=== PATIENT | female | born 1955 | race American Indian/Alaskan Native ===

== ENCOUNTER 2023-06-09 08:11 | Inpatient (IN) | payer MEDICAID ==
[~2023-06-09] VITALS: Ht 154.9 cm; Wt 58.1 kg
[2023-06-09] MEDS ORDERED: acetaminophen 325mg tablet PO STA (09:12)
[2023-06-09] MEDS ORDERED: CefTRIAXone 2gm/D5W 50ml BAG 50 ML IV ONE (09:15)
[2023-06-09 09:47] LABS: ABG BASE EXCESS 5.4 mmol/L (-2.0-2.0); ABG HCO3 32.5 mmol/L (22.0-26.0); ABG OXYGEN SATURATION 97.7 % (94-97); ABG PCO2 (T) 60.4 mmHg (32.0-45.0); ABG PH (T) 7.347 (7.350-7.450); ABG PO2 (T) 101.3 mmHg (75.0-100.0); ALLEN'S TEST POSITIVE; FCOHb 0.3 % (0.0-3.9); FHHb 2.3 % (0.0-5.0); FMetHb 0.3 % (0.0-1.5); FO2Hb 97.1 % (94-97); MODE MASK - SIMPLE; PATIENT TEMPERATURE 36.4; TOTAL HEMOGLOBIN 10.5 G/dl (12.0-16.0)
[2023-06-09 10:01] VITALS: PULSE 65; RESP 25; O2SAT 97
[2023-06-09 10:12] VITALS: PULSE 65; RESP 22; O2SAT 97
[2023-06-09 10:37] LABS: BASOPHILS % (AUTO) 0.1 % (0-1); EOSINOPHILS % (AUTO) 0 % (0-6); HEMATOCRIT 31.2 % (35.0-45.0); LYMPHOCYTES # (AUTO) 0.8 X10'3 (1.1-4.8); LYMPHOCYTES % (AUTO) 6.5 % (21-51); MEAN CORPUSCULAR HEMOGLOBIN 29.5 PG (27.0-31.0); MEAN CORPUSCULAR HGB CONC 31.9 g/dL (33.0-36.5); MEAN CORPUSCULAR VOLUME 92.4 FL (78-98); MEAN PLATELET VOLUME 7.5 FL (7.4-10.4); MONOCYTES # (AUTO) 0.6 X10'3 (0-0.9); MONOCYTES % (AUTO) 5.1 % (2-12); NEUTROPHILS # (AUTO) 10.6 X10'3 (1.8-7.7); NEUTROPHILS % (AUTO) 88.3 % (42-75); PLATELET COUNT 299 X10'3 (140-440); RED BLOOD COUNT 3.38 X10'6 (4.20-5.60); RED CELL DISTRIBUTION WIDTH 13.6 % (11.5-14.5)
[2023-06-09 10:54] LABS: APTT 26 SECONDS (22-32); INR 1.1 INR; PROTHROMBIN TIME 11.3 SECONDS (9.0-12.0)
[2023-06-09 10:58] LABS: ALANINE AMINOTRANSFERASE 25 U/L (12-78); ALBUMIN 2.5 G/DL (3.4-5.0); ALBUMIN/GLOBULIN RATIO 0.4 (1.1-1.5); ALKALINE PHOSPHATASE 85 IU/L (46-116); ANION GAP 0 (8-16); ASPARTATE AMINO TRANSFERASE 20 U/L (10-37); BILIRUBIN,TOTAL 0.3 MG/DL (0.1-1.0); BLOOD UREA NITROGEN 21 MG/DL (7-18); CALCIUM 9.7 MG/DL (8.5-10.1); CHLORIDE 105 MMOL/L (99-107); CREATININE 0.42 MG/DL (0.40-0.90); GLUCOSE 142 MG/DL (70-104); POTASSIUM 4.8 MMOL/L (3.5-5.1); SODIUM 144 MMOL/L (135-145); TOTAL CARBON DIOXIDE 38.6 MMOL/L (24-32); TOTAL PROTEIN 8.1 G/DL (6.4-8.2); eCRCL 101 ML/MIN; eGFR > 90 ML/MIN
[2023-06-09 10:59] LABS: MAGNESIUM 2.1 MG/DL (1.5-2.4); PRO BRAIN NATRIURETIC PEPTIDE 3927 PG/ML (0-125)
[2023-06-09 11:03] LABS: D-DIMER 1.45 MG/L FEU (0-0.50)
[2023-06-09] MEDS ORDERED: iohexol 350MG/ML 100ml bottle IV ONE (11:12)
[2023-06-09 16:12] LABS: BILIRUBIN,URINE NEGATIVE (Neg); CLARITY,URINE SLIGHTLY CLOUDY (Clear); COLOR,URINE YELLOW (Yellow); GLUCOSE, URINE NEGATIVE (Neg); KETONES,URINE NEGATIVE (Neg); LEUKOCYTE ESTERASE ,URINE NEGATIVE (Neg); NITRITES, URINE NEGATIVE (Neg); OCCULT BLOOD,URINE TRACE-INTACT (Neg); PH,URINE 6.5 (4.8-8.0); PROTEIN,URINE NEGATIVE (Neg); UROBILINOGEN,URINE 0.2 E.U/dL (0.2-1.0)
[2023-06-09 16:13] LABS: UA COLLECTION TYPE FOLEY CATH
[2023-06-09 16:23] LABS: BACTERIA,URINE FEW /HPF (Neg); CAL OXALATE CRYSTALS 3+ /HPF (NEGATIVE); HYALINE CASTS 0-3 /LPF (NEGATIVE); MUCUS STRANDS NONE SEEN /LPF (Neg); RBC,URINE 0-2 /HPF (0-2); RENAL CELLS, URINE FEW /HPF; SQUAMOUS EPITHELIAL CELL,UR NONE SEEN /LPF (FEW); YEAST MODERATE /HPF (NEGATIVE)
[2023-06-09 19:32] VITALS: PULSE 57; RESP 18; O2SAT 100
[2023-06-09 19:34] VITALS: PULSE 58; RESP 18; O2SAT 98
[2023-06-09 23:07] LABS: ABG BASE EXCESS 11.5 mmol/L (-2.0-2.0); ABG HCO3 37.5 mmol/L (22.0-26.0); ABG OXYGEN SATURATION 97.8 % (94-97); ABG PCO2 (T) 57.3 mmHg (32.0-45.0); ABG PH (T) 7.432 (7.350-7.450); ABG PO2 (T) 101.5 mmHg (75.0-100.0); ALLEN'S TEST Modified; FCOHb 0.3 % (0.0-3.9); FHHb 2.2 % (0.0-5.0); FLOW 2 L/min; FMetHb 0.4 % (0.0-1.5); FO2Hb 97.1 % (94-97); MODE NASAL CANNULA; PATIENT TEMPERATURE 36.9
[2023-06-09 23:10] VITALS: PULSE 58; RESP 25; O2SAT 98
[2023-06-10] VITALS (15 sets, daily range): BP systolic 80–121; BP diastolic 40–53; PULSE 59–79; RESP 16–29; TEMP 96.9–97.8; O2SAT 98–100
[2023-06-10] MEDS ORDERED: ondansetron 4mg rapidly disintigrating tab PO PRN (00:55)
[2023-06-10] MEDS ORDERED: magnesium hydroxide 30ml (MOM) UD suspension PO PRN (00:55)
[2023-06-10] MEDS ORDERED: normal saline 1000ml 1,000 ML IV SCH (00:55)
[2023-06-10] MEDS ORDERED: HYDROcodone/acetaminophen 5mg/325mg tablet PO PRN (00:55)
[2023-06-10] MEDS ORDERED: bisacodyl 10mg suppository rectal RC PRN (00:55)
[2023-06-10] MEDS ORDERED: acetaminophen 325mg tablet PO PRN ×2 (00:55)
[2023-06-10] MEDS ORDERED: HYDROcodone/acetaminophen 10/325mg tab PO PRN (00:55)
[2023-06-10] MEDS ORDERED: ondansetron/PF 4mg/2ml inj IV PRN (00:55)
[2023-06-10] MEDS ORDERED: mag hydrox/Alum hydrox/simeth 30ml oral suspension PO PRN (00:55)
[2023-06-10] MEDS ORDERED: morphine 2 MG/ML inj. syringe IV PRN ×2 (00:55)
[2023-06-10] MEDS ORDERED: acetaminophen 650mg rectal suppository RC PRN (00:55)
[2023-06-10 02:29] LABS: HEMOGLOBIN A1C 5.3 % (4.5-6.2)
[2023-06-10 02:32] LABS: APTT 24 SECONDS (22-32); INR 1.1 INR; PROTHROMBIN TIME 11.7 SECONDS (9.0-12.0)
[2023-06-10 03:09] LABS: THYROID STIMULATING HORMONE < 0.01 ulU/ml (0.34-4.50)
[2023-06-10] MEDS ORDERED: albumin (human) 25% 100ml IV 100 ML in dextrose 5% water 500ml 400 ML IV ONE (06:20)
[2023-06-10] MEDS ORDERED: albumin (Human) 5% 250ml 250 ML IV ONE ×4 (06:25→07:30)
[2023-06-10 06:47] LABS: ABG BASE EXCESS 10.1 mmol/L (-2.0-2.0); ABG HCO3 35.6 mmol/L (22.0-26.0); ABG OXYGEN SATURATION 87.1 % (94-97); ABG PCO2 (T) 53.1 mmHg (32.0-45.0); ABG PH (T) 7.441 (7.350-7.450); ALLEN'S TEST POSITIVE; FCOHb 0.3 % (0.0-3.9); FHHb 12.8 % (0.0-5.0); FMetHb 0.5 % (0.0-1.5); FO2Hb 86.4 % (94-97); MODE MASK - BIPAP; PATIENT TEMPERATURE 36.3; PEEP 5 cm H2O; RESPIRATORY RATE 12 b/min; TIDAL VOLUME 444 mL; TOTAL HEMOGLOBIN 8.7 G/dl (12.0-16.0)
[2023-06-10] MEDS: pantoprazole 40mg Tablet.DR PO SCH (07:30)
[2023-06-10] MEDS: docusate sod 100mg capsule PO SCH ×2 (08:00→19:08)
[2023-06-10] MEDS ORDERED: methylPREDNISolone sod succ 125mg/2ml vial IV SCH (08:00)
[2023-06-10] MEDS: CefTRIAXone/D5W-Rocephin 1gm 50 ML IV SCH (09:03)
[2023-06-10] MEDS: azithromycin/NS 500mg/250ml 250 ML IV SCH (09:04)
[2023-06-10] MEDS: heparin, porcine 5000 units/ml vial SQ SCH ×2 (09:04→19:53)
[2023-06-10] MEDS ORDERED: ipratropium/albuterol 3ml nebule NEB PRN (11:05)
[2023-06-10] MEDS: ipratropium/albuterol 3ml nebule NEB PRN (11:20)
[2023-06-10] MEDS: methylPREDNISolone sod succ/PF 40mg inj. IV SCH (19:52)
[2023-06-10] MEDS ORDERED: temazepam 15mg capsule PO PRN (21:00)
[2023-06-10] MEDS ORDERED: ringers solution, lactated 500ml IV solution IV ONE (23:05)
[2023-06-10] MEDS ORDERED: DOPamine 400mg/D5W 250ml 250 ML IV SCH (23:05)
[2023-06-10] MEDS ORDERED: albumin (human) 25% 100ml IV 100 ML IV ONE (23:05)
[2023-06-10 23:27] LABS: BASOPHILS # (AUTO) 0.1 X10'3 (0-0.2); BASOPHILS % (AUTO) 0.9 % (0-1); EOSINOPHILS % (AUTO) 0 % (0-6); HEMATOCRIT 27.3 % (35.0-45.0); LYMPHOCYTES # (AUTO) 0.5 X10'3 (1.1-4.8); LYMPHOCYTES % (AUTO) 5.3 % (21-51); MEAN CORPUSCULAR HEMOGLOBIN 30.7 PG (27.0-31.0); MEAN CORPUSCULAR HGB CONC 33.1 g/dL (33.0-36.5); MEAN CORPUSCULAR VOLUME 92.7 FL (78-98); MEAN PLATELET VOLUME 7.4 FL (7.4-10.4); MONOCYTES # (AUTO) 0.3 X10'3 (0-0.9); NEUTROPHILS # (AUTO) 8.8 X10'3 (1.8-7.7); NEUTROPHILS % (AUTO) 90.8 % (42-75); PLATELET COUNT 277 X10'3 (140-440); RED BLOOD COUNT 2.94 X10'6 (4.20-5.60); RED CELL DISTRIBUTION WIDTH 13.7 % (11.5-14.5); WHITE BLOOD COUNT 9.7 X10'3 (4.5-11.0)
[2023-06-10 23:42] LABS: ALANINE AMINOTRANSFERASE 19 U/L (12-78); ALBUMIN 2.7 G/DL (3.4-5.0); ALBUMIN/GLOBULIN RATIO 0.6 (1.1-1.5); ALKALINE PHOSPHATASE 66 IU/L (46-116); ANION GAP 4 (8-16); ASPARTATE AMINO TRANSFERASE 27 U/L (10-37); BILIRUBIN,TOTAL 0.2 MG/DL (0.1-1.0); BLOOD UREA NITROGEN 27 MG/DL (7-18); BUN/CREATININE RATIO 71.1 (10.0-20.0); CALCIUM 9.7 MG/DL (8.5-10.1); CHLORIDE 108 MMOL/L (99-107); CREATININE 0.38 MG/DL (0.40-0.90); GLUCOSE 128 MG/DL (70-104); POTASSIUM 4.2 MMOL/L (3.5-5.1); SODIUM 150 MMOL/L (135-145); TOTAL CARBON DIOXIDE 37.8 MMOL/L (24-32); eCRCL 111 ML/MIN; eGFR > 90 ML/MIN
[2023-06-10 23:50] LABS: FREE T4 (FREE THYROXINE) 1.24 NG/DL (0.73-1.40); PRO BRAIN NATRIURETIC PEPTIDE 2951 PG/ML (0-125)
[2023-06-11] VITALS (29 sets, daily range): BP systolic 110–158; BP diastolic 52–86; PULSE 59–102; RESP 14–22; TEMP 96.8–98.2; O2SAT 95–99
[2023-06-11] LABS: BILIRUBIN,URINE NEGATIVE (Neg); CLARITY,URINE SLIGHTLY CLOUDY (Clear); COLOR,URINE YELLOW (Yellow); GLUCOSE, URINE NEGATIVE (Neg); KETONES,URINE NEGATIVE (Neg); LEUKOCYTE ESTERASE ,URINE SMALL (Neg); NITRITES, URINE NEGATIVE (Neg); OCCULT BLOOD,URINE SMALL (Neg); PROTEIN,URINE NEGATIVE (Neg); UROBILINOGEN,URINE 0.2 E.U/dL (0.2-1.0)
[2023-06-11 00:02] LABS: UA COLLECTION TYPE FOLEY CATH
[2023-06-11 00:03] LABS: ABG BASE EXCESS 10.3 mmol/L (-2.0-2.0); ABG HCO3 37.3 mmol/L (22.0-26.0); ABG OXYGEN SATURATION 96.2 % (94-97); ABG PCO2 (T) 64.9 mmHg (32.0-45.0); ABG PH (T) 7.376 (7.350-7.450); ABG PO2 (T) 82.4 mmHg (75.0-100.0); ALLEN'S TEST Modified; FCOHb 0.3 % (0.0-3.9); FHHb 3.8 % (0.0-5.0); FMetHb 0.3 % (0.0-1.5); FO2Hb 95.6 % (94-97); MODE MASK - BIPAP; PATIENT TEMPERATURE 36.6; RESPIRATORY RATE 14 b/min; TOTAL HEMOGLOBIN 9.5 G/dl (12.0-16.0)
[2023-06-11 00:08] LABS: BACTERIA,URINE FEW /HPF (Neg); WBC,URINE TNTC /HPF (0-4)
[2023-06-11 00:09] LABS: SQUAMOUS EPITHELIAL CELL,UR FEW /LPF (FEW)
[2023-06-11 00:10] LABS: YEAST MODERATE /HPF (NEGATIVE)
[2023-06-11 00:11] LABS: MUCUS STRANDS MODERATE /LPF (Neg)
[2023-06-11 00:14] LABS: HYALINE CASTS 0-3 /LPF (NEGATIVE)
[2023-06-11] MEDS ORDERED: albumin (Human) 5% 250ml 250 ML IV ONE ×2 (01:00)
[2023-06-11] MEDS: dextrose 5%-water 1,000 ML IV SCH ×2 (02:12→20:18)
[2023-06-11] MEDS ORDERED: DOPamine 400mg/D5W 250ml 250 ML IV SCH ×2 (03:35→03:40)
[2023-06-11 07:02] LABS: BASOPHILS % (AUTO) 0.1 % (0-1); EOSINOPHILS % (AUTO) 0 % (0-6); HEMATOCRIT 27.5 % (35.0-45.0); HEMOGLOBIN 9.1 g/dl (12.0-16.0); LYMPHOCYTES # (AUTO) 0.6 X10'3 (1.1-4.8); LYMPHOCYTES % (AUTO) 5.6 % (21-51); MEAN CORPUSCULAR HEMOGLOBIN 30.4 PG (27.0-31.0); MEAN CORPUSCULAR VOLUME 92.1 FL (78-98); MEAN PLATELET VOLUME 7.5 FL (7.4-10.4); MONOCYTES # (AUTO) 0.8 X10'3 (0-0.9); MONOCYTES % (AUTO) 7.2 % (2-12); NEUTROPHILS # (AUTO) 9.9 X10'3 (1.8-7.7); NEUTROPHILS % (AUTO) 87.1 % (42-75); PLATELET COUNT 290 X10'3 (140-440); RED BLOOD COUNT 2.99 X10'6 (4.20-5.60); RED CELL DISTRIBUTION WIDTH 13.7 % (11.5-14.5); WHITE BLOOD COUNT 11.3 X10'3 (4.5-11.0)
[2023-06-11 07:24] LABS: ALANINE AMINOTRANSFERASE 22 U/L (12-78); ALBUMIN 3.1 G/DL (3.4-5.0); ALBUMIN/GLOBULIN RATIO 0.8 (1.1-1.5); ALKALINE PHOSPHATASE 65 IU/L (46-116); ANION GAP 5 (8-16); ASPARTATE AMINO TRANSFERASE 26 U/L (10-37); BILIRUBIN,TOTAL 0.4 MG/DL (0.1-1.0); BLOOD UREA NITROGEN 22 MG/DL (7-18); BUN/CREATININE RATIO 59.5 (10.0-20.0); CALCIUM 9.3 MG/DL (8.5-10.1); CHLORIDE 108 MMOL/L (99-107); CHOL/HDL RATIO 2.3 (0.00-4.99); CHOLESTEROL 77 MG/DL (0-200); CREATININE 0.37 MG/DL (0.40-0.90); GLUCOSE 178 MG/DL (70-104); HDL CHOLESTEROL 34 MG/DL (35-60); LDL CHOLESTEROL 30 MG/DL (50-100); POTASSIUM 3.6 MMOL/L (3.5-5.1); SODIUM 149 MMOL/L (135-145); TOTAL CARBON DIOXIDE 36.4 MMOL/L (24-32); TOTAL PROTEIN 7.1 G/DL (6.4-8.2); TRIGLYCERIDES 97 MG/DL (20-135); eCRCL 114 ML/MIN; eGFR > 90 ML/MIN
[2023-06-11] MEDS: pantoprazole 40mg Tablet.DR PO SCH (07:30)
[2023-06-11] MEDS: docusate sod 100mg capsule PO SCH ×2 (08:00→20:00)
[2023-06-11] MEDS: methylPREDNISolone sod succ/PF 40mg inj. IV SCH ×2 (09:14→20:16)
[2023-06-11] MEDS: CefTRIAXone/D5W-Rocephin 1gm 50 ML IV SCH (09:15)
[2023-06-11] MEDS: azithromycin/NS 500mg/250ml 250 ML IV SCH (10:20)
[2023-06-11] MEDS: heparin, porcine 5000 units/ml vial SQ SCH ×2 (10:30→20:17)
[2023-06-11] MEDS: ipratropium/albuterol 3ml nebule NEB PRN (11:50)
[2023-06-12] VITALS (9 sets, daily range): BP systolic 120–133; BP diastolic 56–64; PULSE 59–74; RESP 13–22; TEMP 97.5–99.1; O2SAT 96–99
[2023-06-12 07:30] LABS: BASOPHILS % (AUTO) 0.1 % (0-1); EOSINOPHILS % (AUTO) 0.1 % (0-6); HEMATOCRIT 25.7 % (35.0-45.0); HEMOGLOBIN 8.6 g/dl (12.0-16.0); LYMPHOCYTES # (AUTO) 1.3 X10'3 (1.1-4.8); LYMPHOCYTES % (AUTO) 12.9 % (21-51); MEAN CORPUSCULAR HEMOGLOBIN 30.5 PG (27.0-31.0); MEAN CORPUSCULAR HGB CONC 33.5 g/dL (33.0-36.5); MEAN PLATELET VOLUME 7.3 FL (7.4-10.4); MONOCYTES % (AUTO) 9.9 % (2-12); NEUTROPHILS # (AUTO) 7.7 X10'3 (1.8-7.7); PLATELET COUNT 279 X10'3 (140-440); RED BLOOD COUNT 2.83 X10'6 (4.20-5.60); RED CELL DISTRIBUTION WIDTH 13.4 % (11.5-14.5)
[2023-06-12] MEDS: pantoprazole 40mg Tablet.DR PO SCH (07:30)
[2023-06-12] MEDS: docusate sod 100mg capsule PO SCH ×2 (08:00→20:00)
[2023-06-12 08:26] LABS: ALANINE AMINOTRANSFERASE 20 U/L (12-78); ALBUMIN 2.7 G/DL (3.4-5.0); ALBUMIN/GLOBULIN RATIO 0.8 (1.1-1.5); ALKALINE PHOSPHATASE 57 IU/L (46-116); ANION GAP 5 (8-16); ASPARTATE AMINO TRANSFERASE 23 U/L (10-37); BILIRUBIN,TOTAL 0.3 MG/DL (0.1-1.0); BLOOD UREA NITROGEN 21 MG/DL (7-18); BUN/CREATININE RATIO 56.8 (10.0-20.0); CALCIUM 9.1 MG/DL (8.5-10.1); CHLORIDE 106 MMOL/L (99-107); CREATININE 0.37 MG/DL (0.40-0.90); GLUCOSE 105 MG/DL (70-104); POTASSIUM 3.1 MMOL/L (3.5-5.1); SODIUM 147 MMOL/L (135-145); TOTAL CARBON DIOXIDE 35.7 MMOL/L (24-32); TOTAL PROTEIN 6.3 G/DL (6.4-8.2); eCRCL 114 ML/MIN; eGFR > 90 ML/MIN
[2023-06-12 08:34] LABS: % IRON SATURATION 31 % (11-46); IRON 39 UG/DL (49-151); TOTAL IRON BINDING CAPACITY 125 UG/DL (259-388)
[2023-06-12] MEDS: azithromycin/NS 500mg/250ml 250 ML IV SCH (08:36)
[2023-06-12] MEDS: CefTRIAXone/D5W-Rocephin 1gm 50 ML IV SCH (08:36)
[2023-06-12 08:37] LABS: FERRITIN 380 NG/ML (8-252)
[2023-06-12] MEDS: methylPREDNISolone sod succ/PF 40mg inj. IV SCH ×2 (08:40→20:33)
[2023-06-12] MEDS: heparin, porcine 5000 units/ml vial SQ SCH ×2 (08:42→20:33)
[2023-06-12] MEDS ORDERED: magnesium 4gm in 100ml NS 100 ML IV PRN (15:05)
[2023-06-12] MEDS ORDERED: magnesium 2GM in 50ml NS 50 ML IV PRN (15:05)
[2023-06-12] MEDS ORDERED: potassium Cl 40MEQ/1/2NS 520ml 520 ML IV PRN (15:05)
[2023-06-12] MEDS ORDERED: magnesium Cl slow-release 64mg tablet PO PRN (15:05)
[2023-06-12] MEDS ORDERED: potassium Cl 20 mEq SR tablet PO PRN ×2 (15:05)
[2023-06-12] MEDS: dextrose 5%-water 1,000 ML IV SCH (16:30)
[2023-06-12] MEDS: K and/or MAG REPLACEMENT MC SCH (20:34)
[2023-06-13] VITALS (14 sets, daily range): BP systolic 108–141; BP diastolic 57–65; PULSE 63–93; RESP 12–28; TEMP 98–100.8; O2SAT 90–96
[2023-06-13 07:14] LABS: BASOPHILS % (AUTO) 0.1 % (0-1); EOSINOPHILS % (AUTO) 0 % (0-6); HEMATOCRIT 26.6 % (35.0-45.0); HEMOGLOBIN 8.8 g/dl (12.0-16.0); LYMPHOCYTES # (AUTO) 1.3 X10'3 (1.1-4.8); MEAN CORPUSCULAR HEMOGLOBIN 30.2 PG (27.0-31.0); MEAN CORPUSCULAR HGB CONC 33.2 g/dL (33.0-36.5); MEAN PLATELET VOLUME 7.2 FL (7.4-10.4); MONOCYTES # (AUTO) 0.9 X10'3 (0-0.9); MONOCYTES % (AUTO) 8.5 % (2-12); NEUTROPHILS # (AUTO) 8.1 X10'3 (1.8-7.7); NEUTROPHILS % (AUTO) 78.4 % (42-75); PLATELET COUNT 284 X10'3 (140-440); RED BLOOD COUNT 2.92 X10'6 (4.20-5.60); RED CELL DISTRIBUTION WIDTH 13.6 % (11.5-14.5); WHITE BLOOD COUNT 10.3 X10'3 (4.5-11.0)
[2023-06-13] MEDS: pantoprazole 40mg Tablet.DR PO SCH (07:30)
[2023-06-13 07:38] LABS: ALANINE AMINOTRANSFERASE 22 U/L (12-78); ALBUMIN 2.7 G/DL (3.4-5.0); ALBUMIN/GLOBULIN RATIO 0.7 (1.1-1.5); ALKALINE PHOSPHATASE 58 IU/L (46-116); ANION GAP 5 (8-16); ASPARTATE AMINO TRANSFERASE 21 U/L (10-37); BILIRUBIN,TOTAL 0.4 MG/DL (0.1-1.0); BLOOD UREA NITROGEN 15 MG/DL (7-18); BUN/CREATININE RATIO 37.5 (10.0-20.0); CALCIUM 8.9 MG/DL (8.5-10.1); CHLORIDE 100 MMOL/L (99-107); GLUCOSE 111 MG/DL (70-104); POTASSIUM 4.3 MMOL/L (3.5-5.1); SODIUM 137 MMOL/L (135-145); TOTAL CARBON DIOXIDE 32.5 MMOL/L (24-32); TOTAL PROTEIN 6.5 G/DL (6.4-8.2); eCRCL 106 ML/MIN; eGFR > 90 ML/MIN
[2023-06-13] MEDS: K and/or MAG REPLACEMENT MC SCH ×2 (08:00→20:00)
[2023-06-13] MEDS: docusate sod 100mg capsule PO SCH (08:00)
[2023-06-13 08:27] LABS: TOTAL CELLS COUNTED 100
[2023-06-13 08:28] LABS: ANISOCYTOSIS FEW; PLATELET ESTIMATE NORMAL
[2023-06-13 08:29] LABS: POIKILOCYTOSIS FEW
[2023-06-13] MEDS: methylPREDNISolone sod succ/PF 40mg inj. IV SCH ×2 (09:11→20:58)
[2023-06-13] MEDS: heparin, porcine 5000 units/ml vial SQ SCH ×2 (09:12→20:58)
[2023-06-13] MEDS: CefTRIAXone/D5W-Rocephin 1gm 50 ML IV SCH (09:13)
[2023-06-13] MEDS: azithromycin/NS 500mg/250ml 250 ML IV SCH (09:13)
[2023-06-13] MEDS: ipratropium/albuterol 3ml nebule NEB PRN ×2 (10:47→15:56)
[2023-06-13] MEDS ORDERED: IODIXANOL 320 MG/ML INFUS..BTL 100ML IV ONE (11:04)
[2023-06-13] MEDS: dextrose 5%-water 1,000 ML IV SCH (12:30)
[2023-06-13] MEDS ORDERED: piperacillin/tazo 3.375gm/50ml 50 ML IV SCH (16:00)
[2023-06-13] MEDS: piperacillin/tazo 3.375gm/50ml 50 ML IV SCH (17:12)
[2023-06-13] MEDS ORDERED: docusate sodium 100mg/10ml UD cup PO SCH (20:50)
[2023-06-13] MEDS: docusate sodium 100mg/10ml UD cup PO SCH (21:21)
[2023-06-14] VITALS (24 sets, daily range): BP systolic 105–157; BP diastolic 47–74; PULSE 63–103; RESP 16–30; TEMP 97.9–101.1; O2SAT 74–100
[2023-06-14] MEDS: piperacillin/tazo 3.375gm/50ml 50 ML IV SCH ×3 (00:10→16:30)
[2023-06-14] MEDS: dextrose 5%-water 1,000 ML IV SCH (04:36)
[2023-06-14] MEDS: pantoprazole 40mg Tablet.DR PO SCH (07:30)
[2023-06-14 07:58] LABS: BASOPHILS % (AUTO) 0.1 % (0-1); EOSINOPHILS % (AUTO) 0 % (0-6); HEMATOCRIT 28.4 % (35.0-45.0); HEMOGLOBIN 9.4 g/dl (12.0-16.0); LYMPHOCYTES # (AUTO) 0.8 X10'3 (1.1-4.8); LYMPHOCYTES % (AUTO) 6.7 % (21-51); MEAN CORPUSCULAR VOLUME 91.1 FL (78-98); MEAN PLATELET VOLUME 7.2 FL (7.4-10.4); MONOCYTES # (AUTO) 0.9 X10'3 (0-0.9); NEUTROPHILS % (AUTO) 86.2 % (42-75); PLATELET COUNT 298 X10'3 (140-440); RED BLOOD COUNT 3.12 X10'6 (4.20-5.60); WHITE BLOOD COUNT 12.7 X10'3 (4.5-11.0)
[2023-06-14] MEDS: K and/or MAG REPLACEMENT MC SCH ×2 (08:00→20:31)
[2023-06-14] MEDS: methylPREDNISolone sod succ/PF 40mg inj. IV SCH ×2 (08:53→20:18)
[2023-06-14] MEDS: heparin, porcine 5000 units/ml vial SQ SCH ×2 (08:53→20:18)
[2023-06-14] MEDS: docusate sodium 100mg/10ml UD cup PO SCH ×2 (08:54→20:00)
[2023-06-14 08:59] LABS: ALANINE AMINOTRANSFERASE 22 U/L (12-78); ALBUMIN 2.8 G/DL (3.4-5.0); ALBUMIN/GLOBULIN RATIO 0.7 (1.1-1.5); ALKALINE PHOSPHATASE 60 IU/L (46-116); ANION GAP 7 (8-16); ASPARTATE AMINO TRANSFERASE 23 U/L (10-37); BILIRUBIN,TOTAL 0.4 MG/DL (0.1-1.0); BLOOD UREA NITROGEN 15 MG/DL (7-18); BUN/CREATININE RATIO 35.7 (10.0-20.0); CALCIUM 9.1 MG/DL (8.5-10.1); CHLORIDE 101 MMOL/L (99-107); CREATININE 0.42 MG/DL (0.40-0.90); GLUCOSE 154 MG/DL (70-104); SODIUM 140 MMOL/L (135-145); TOTAL CARBON DIOXIDE 32.5 MMOL/L (24-32); TOTAL PROTEIN 6.7 G/DL (6.4-8.2); eCRCL 101 ML/MIN; eGFR > 90 ML/MIN
[2023-06-14] MEDS ORDERED: MIDAZolam 1mg/ml 10ml vial IV ONE (09:00)
[2023-06-14] MEDS ORDERED: fentaNYL/PF 50MCG/1 ML 2ML syringe IV ONE (09:00)
[2023-06-15] VITALS (11 sets, daily range): BP systolic 119–152; BP diastolic 56–78; PULSE 59–77; RESP 15–20; TEMP 97.1–98.1; O2SAT 90–99
[2023-06-15] MEDS: piperacillin/tazo 3.375gm/50ml 50 ML IV SCH ×3 (01:14→18:58)
[2023-06-15] MEDS: dextrose 5%-water 1,000 ML IV SCH (04:30)
[2023-06-15 07:42] LABS: BASOPHILS % (AUTO) 0.1 % (0-1); EOSINOPHILS % (AUTO) 0 % (0-6); HEMATOCRIT 29.6 % (35.0-45.0); HEMOGLOBIN 9.8 g/dl (12.0-16.0); LYMPHOCYTES # (AUTO) 0.8 X10'3 (1.1-4.8); LYMPHOCYTES % (AUTO) 6.6 % (21-51); MEAN CORPUSCULAR HEMOGLOBIN 30.3 PG (27.0-31.0); MEAN CORPUSCULAR VOLUME 91.8 FL (78-98); MEAN PLATELET VOLUME 7.2 FL (7.4-10.4); MONOCYTES # (AUTO) 1.3 X10'3 (0-0.9); MONOCYTES % (AUTO) 10.1 % (2-12); NEUTROPHILS # (AUTO) 10.6 X10'3 (1.8-7.7); NEUTROPHILS % (AUTO) 83.2 % (42-75); PLATELET COUNT 275 X10'3 (140-440); RED BLOOD COUNT 3.22 X10'6 (4.20-5.60); RED CELL DISTRIBUTION WIDTH 13.9 % (11.5-14.5); WHITE BLOOD COUNT 12.7 X10'3 (4.5-11.0)
[2023-06-15] MEDS: K and/or MAG REPLACEMENT MC SCH ×2 (08:00→19:29)
[2023-06-15 08:14] LABS: ALANINE AMINOTRANSFERASE 23 U/L (12-78); ALBUMIN 2.9 G/DL (3.4-5.0); ALBUMIN/GLOBULIN RATIO 0.8 (1.1-1.5); ALKALINE PHOSPHATASE 60 IU/L (46-116); ANION GAP 7 (8-16); ASPARTATE AMINO TRANSFERASE 24 U/L (10-37); BILIRUBIN,TOTAL 0.4 MG/DL (0.1-1.0); BLOOD UREA NITROGEN 24 MG/DL (7-18); BUN/CREATININE RATIO 37.5 (10.0-20.0); CALCIUM 9.1 MG/DL (8.5-10.1); CHLORIDE 101 MMOL/L (99-107); CREATININE 0.64 MG/DL (0.40-0.90); GLUCOSE 135 MG/DL (70-104); POTASSIUM 3.5 MMOL/L (3.5-5.1); SODIUM 139 MMOL/L (135-145); TOTAL CARBON DIOXIDE 31.5 MMOL/L (24-32); TOTAL PROTEIN 6.7 G/DL (6.4-8.2); eCRCL 66 ML/MIN; eGFR > 90 ML/MIN
[2023-06-15] MEDS: docusate sodium 100mg/10ml UD cup PO SCH ×2 (09:33→19:42)
[2023-06-15] MEDS: heparin, porcine 5000 units/ml vial SQ SCH ×2 (09:34→19:43)
[2023-06-15] MEDS: methylPREDNISolone sod succ/PF 40mg inj. IV SCH ×2 (09:34→19:42)
[2023-06-15] MEDS: pantoprazole 40mg Tablet.DR PO SCH (09:34)
[2023-06-16] VITALS (10 sets, daily range): BP systolic 98–138; BP diastolic 44–59; PULSE 56–74; RESP 12–20; TEMP 97.5–98.4; O2SAT 97–100
[2023-06-16] MEDS: piperacillin/tazo 3.375gm/50ml 50 ML IV SCH ×3 (01:13→15:49)
[2023-06-16] MEDS: dextrose 5%-water 1,000 ML IV SCH ×2 (01:14→19:52)
[2023-06-16] MEDS: K and/or MAG REPLACEMENT MC SCH ×2 (08:00→19:52)
[2023-06-16] MEDS: methylPREDNISolone sod succ/PF 40mg inj. IV SCH ×2 (10:14→19:52)
[2023-06-16] MEDS: pantoprazole 40mg Tablet.DR PO SCH (10:14)
[2023-06-16] MEDS: docusate sodium 100mg/10ml UD cup PO SCH ×2 (10:15→19:52)
[2023-06-16] MEDS: heparin, porcine 5000 units/ml vial SQ SCH (10:19)
[2023-06-16] MEDS: fluconazole-Diflucan 200mg/NS 100 ML IV SCH (19:52)
[2023-06-17] VITALS (9 sets, daily range): BP systolic 107–164; BP diastolic 52–75; PULSE 54–67; RESP 12–20; TEMP 97.2–98.5; O2SAT 93–100
[2023-06-17] MEDS: piperacillin/tazo 3.375gm/50ml 50 ML IV SCH ×3 (00:07→16:38)
[2023-06-17] MEDS: K and/or MAG REPLACEMENT MC SCH ×2 (08:00→20:42)
[2023-06-17] MEDS: methylPREDNISolone sod succ/PF 40mg inj. IV SCH ×2 (08:57→20:42)
[2023-06-17] MEDS: fluconazole-Diflucan 200mg/NS 100 ML IV SCH (08:57)
[2023-06-17] MEDS: pantoprazole 40mg Tablet.DR PO SCH (10:00)
[2023-06-17] MEDS: docusate sodium 100mg/10ml UD cup PO SCH ×2 (10:00→20:42)
[2023-06-17 11:24] LABS: BASOPHILS % (AUTO) 0 % (0-1); EOSINOPHILS % (AUTO) 0 % (0-6); HEMATOCRIT 30.9 % (35.0-45.0); HEMOGLOBIN 10.2 g/dl (12.0-16.0); LYMPHOCYTES # (AUTO) 0.4 X10'3 (1.1-4.8); LYMPHOCYTES % (AUTO) 5.1 % (21-51); MEAN CORPUSCULAR HEMOGLOBIN 30.2 PG (27.0-31.0); MEAN CORPUSCULAR VOLUME 91.5 FL (78-98); MEAN PLATELET VOLUME 7.3 FL (7.4-10.4); MONOCYTES # (AUTO) 0.6 X10'3 (0-0.9); MONOCYTES % (AUTO) 7.4 % (2-12); NEUTROPHILS # (AUTO) 7.3 X10'3 (1.8-7.7); NEUTROPHILS % (AUTO) 87.5 % (42-75); PLATELET COUNT 247 X10'3 (140-440); RED BLOOD COUNT 3.37 X10'6 (4.20-5.60); RED CELL DISTRIBUTION WIDTH 14.4 % (11.5-14.5); WHITE BLOOD COUNT 8.4 X10'3 (4.5-11.0)
[2023-06-17 11:55] LABS: ALANINE AMINOTRANSFERASE 34 U/L (12-78); ALBUMIN 2.7 G/DL (3.4-5.0); ALBUMIN/GLOBULIN RATIO 0.7 (1.1-1.5); ALKALINE PHOSPHATASE 60 IU/L (46-116); ANION GAP 6 (8-16); ASPARTATE AMINO TRANSFERASE 19 U/L (10-37); BILIRUBIN,TOTAL 0.5 MG/DL (0.1-1.0); BLOOD UREA NITROGEN 16 MG/DL (7-18); BUN/CREATININE RATIO 42.1 (10.0-20.0); CALCIUM 9.3 MG/DL (8.5-10.1); CHLORIDE 102 MMOL/L (99-107); CREATININE 0.38 MG/DL (0.40-0.90); GLUCOSE 135 MG/DL (70-104); POTASSIUM 3.2 MMOL/L (3.5-5.1); SODIUM 140 MMOL/L (135-145); TOTAL PROTEIN 6.8 G/DL (6.4-8.2); eCRCL 111 ML/MIN; eGFR > 90 ML/MIN
[2023-06-17] MEDS: dextrose 5%-water 1,000 ML IV SCH (16:30)
[2023-06-17] MEDS ORDERED: potassium Cl 40MEQ/1/2NS 520ml 520 ML IV PRN (18:50)
[2023-06-17] MEDS: heparin, porcine 5000 units/ml vial SQ SCH (20:00)
[2023-06-17] MEDS: potassium Cl 20 mEq SR tablet PO PRN (20:42)
[2023-06-18] VITALS (18 sets, daily range): BP systolic 111–154; BP diastolic 51–101; PULSE 54–68; RESP 14–21; TEMP 97.6–99; O2SAT 96–100
[2023-06-18] MEDS: potassium Cl 20 mEq SR tablet PO PRN (00:28)
[2023-06-18] MEDS: piperacillin/tazo 3.375gm/50ml 50 ML IV SCH ×4 (00:29→23:56)
[2023-06-18 06:14] LABS: BASOPHILS % (AUTO) 0.1 % (0-1); EOSINOPHILS % (AUTO) 0 % (0-6); HEMATOCRIT 30.8 % (35.0-45.0); HEMOGLOBIN 10.1 g/dl (12.0-16.0); LYMPHOCYTES # (AUTO) 0.3 X10'3 (1.1-4.8); LYMPHOCYTES % (AUTO) 4.2 % (21-51); MEAN CORPUSCULAR HGB CONC 32.9 g/dL (33.0-36.5); MEAN PLATELET VOLUME 7.3 FL (7.4-10.4); MONOCYTES # (AUTO) 0.6 X10'3 (0-0.9); MONOCYTES % (AUTO) 8.3 % (2-12); NEUTROPHILS # (AUTO) 6.8 X10'3 (1.8-7.7); NEUTROPHILS % (AUTO) 87.4 % (42-75); PLATELET COUNT 249 X10'3 (140-440); RED BLOOD COUNT 3.38 X10'6 (4.20-5.60); RED CELL DISTRIBUTION WIDTH 14.3 % (11.5-14.5); WHITE BLOOD COUNT 7.7 X10'3 (4.5-11.0)
[2023-06-18 06:32] LABS: ALANINE AMINOTRANSFERASE 40 U/L (12-78); ALBUMIN 2.6 G/DL (3.4-5.0); ALBUMIN/GLOBULIN RATIO 0.7 (1.1-1.5); ALKALINE PHOSPHATASE 55 IU/L (46-116); ANION GAP 6 (8-16); ASPARTATE AMINO TRANSFERASE 20 U/L (10-37); BILIRUBIN,TOTAL 0.4 MG/DL (0.1-1.0); BLOOD UREA NITROGEN 17 MG/DL (7-18); BUN/CREATININE RATIO 45.9 (10.0-20.0); CALCIUM 8.9 MG/DL (8.5-10.1); CHLORIDE 104 MMOL/L (99-107); CREATININE 0.37 MG/DL (0.40-0.90); GLUCOSE 169 MG/DL (70-104); POTASSIUM 3.4 MMOL/L (3.5-5.1); SODIUM 140 MMOL/L (135-145); TOTAL CARBON DIOXIDE 30.3 MMOL/L (24-32); TOTAL PROTEIN 6.2 G/DL (6.4-8.2); eCRCL 114 ML/MIN; eGFR > 90 ML/MIN
[2023-06-18] MEDS: dextrose 5%-water 1,000 ML IV SCH ×2 (07:12→20:29)
[2023-06-18] MEDS: pantoprazole 40mg Tablet.DR PO SCH (07:30)
[2023-06-18] MEDS: K and/or MAG REPLACEMENT MC SCH ×2 (08:00→20:28)
[2023-06-18] MEDS: docusate sodium 100mg/10ml UD cup PO SCH (08:00)
[2023-06-18] MEDS: heparin, porcine 5000 units/ml vial SQ SCH ×2 (08:00→20:29)
[2023-06-18] MEDS ORDERED: fentaNYL/PF 50MCG/1 ML 2ML syringe ONE (09:38)
[2023-06-18] MEDS ORDERED: MIDAZolam 1 MG/ML 5ML VIAL ONE (09:39)
[2023-06-18] MEDS ORDERED: LIDOcaine Viscous 15ml cup ONE (09:39)
[2023-06-18] MEDS: methylPREDNISolone sod succ/PF 40mg inj. IV SCH ×2 (11:08→20:27)
[2023-06-18] MEDS: fluconazole-Diflucan 200mg/NS 100 ML IV SCH (11:08)
[2023-06-18] MEDS ORDERED: acetaminophen 325mg/10.15ml oral unit dose solution PEG PRN ×2 (15:17)
[2023-06-18] MEDS ORDERED: mag hydrox/Alum hydrox/simeth 30ml oral suspension PEG PRN (15:18)
[2023-06-18] MEDS ORDERED: magnesium hydroxide 30ml (MOM) UD suspension PEG PRN (15:18)
[2023-06-18] MEDS ORDERED: temazepam 15mg capsule PEG PRN (15:19)
[2023-06-18] MEDS: POTASSIUM BICARB 20meq eff tab 20 MEQ TABLET.EFF PEG PRN (20:27)
[2023-06-18] MEDS: docusate sodium 100mg/10ml UD cup PEG SCH (20:28)
[2023-06-19] VITALS (8 sets, daily range): BP systolic 100–165; BP diastolic 41–66; PULSE 51–77; RESP 15–24; TEMP 97.5–98.1; O2SAT 89–100
[2023-06-19] MEDS: POTASSIUM BICARB 20meq eff tab 20 MEQ TABLET.EFF PEG PRN (02:16)
[2023-06-19] MEDS: ipratropium/albuterol 3ml nebule NEB PRN (07:03)
[2023-06-19] MEDS: lansoprazole 15mg solutab PEG SCH (07:30)
[2023-06-19 07:41] LABS: ALANINE AMINOTRANSFERASE 37 U/L (12-78); ALBUMIN 2.8 G/DL (3.4-5.0); ALBUMIN/GLOBULIN RATIO 0.8 (1.1-1.5); ALKALINE PHOSPHATASE 59 IU/L (46-116); ANION GAP 2 (8-16); ASPARTATE AMINO TRANSFERASE 22 U/L (10-37); BILIRUBIN,TOTAL 0.5 MG/DL (0.1-1.0); BLOOD UREA NITROGEN 15 MG/DL (7-18); BUN/CREATININE RATIO 48.4 (10.0-20.0); CALCIUM 8.6 MG/DL (8.5-10.1); CHLORIDE 102 MMOL/L (99-107); CREATININE 0.31 MG/DL (0.40-0.90); GLUCOSE 203 MG/DL (70-104); POTASSIUM 3.7 MMOL/L (3.5-5.1); PREALBUMIN 23.9 MG/DL (19-36); SODIUM 137 MMOL/L (135-145); TOTAL CARBON DIOXIDE 33.1 MMOL/L (24-32); TOTAL PROTEIN 6.3 G/DL (6.4-8.2); eCRCL 137 ML/MIN; eGFR > 90 ML/MIN
[2023-06-19 07:44] LABS: BASOPHILS % (AUTO) 0 % (0-1); EOSINOPHILS % (AUTO) 0 % (0-6); HEMATOCRIT 31.6 % (35.0-45.0); HEMOGLOBIN 10.4 g/dl (12.0-16.0); LYMPHOCYTES # (AUTO) 1.2 X10'3 (1.1-4.8); LYMPHOCYTES % (AUTO) 10.6 % (21-51); MEAN CORPUSCULAR HEMOGLOBIN 30.5 PG (27.0-31.0); MEAN CORPUSCULAR HGB CONC 32.9 g/dL (33.0-36.5); MEAN CORPUSCULAR VOLUME 92.5 FL (78-98); MEAN PLATELET VOLUME 7.5 FL (7.4-10.4); MONOCYTES # (AUTO) 1.3 X10'3 (0-0.9); MONOCYTES % (AUTO) 11.2 % (2-12); NEUTROPHILS # (AUTO) 8.8 X10'3 (1.8-7.7); NEUTROPHILS % (AUTO) 78.2 % (42-75); PLATELET COUNT 236 X10'3 (140-440); RED BLOOD COUNT 3.41 X10'6 (4.20-5.60); RED CELL DISTRIBUTION WIDTH 14.4 % (11.5-14.5); WHITE BLOOD COUNT 11.3 X10'3 (4.5-11.0)
[2023-06-19] MEDS: docusate sodium 100mg/10ml UD cup PEG SCH ×2 (08:00→21:02)
[2023-06-19] MEDS: K and/or MAG REPLACEMENT MC SCH ×2 (08:00→19:03)
[2023-06-19] MEDS ORDERED: IPRA3AMP9 NEB (08:17)
[2023-06-19] MEDS ORDERED: LANS15TA5 PEG (08:17)
[2023-06-19] MEDS ORDERED: FLUC200T PEG (08:17)
[2023-06-19] MEDS ORDERED: PRED20TA PEG (08:17)
[2023-06-19] MEDS: fluconazole-Diflucan 200mg/NS 100 ML IV SCH (08:36)
[2023-06-19] MEDS: piperacillin/tazo 3.375gm/50ml 50 ML IV SCH ×2 (08:36→16:33)
[2023-06-19] MEDS: methylPREDNISolone sod succ/PF 40mg inj. IV SCH ×2 (08:37→20:59)
[2023-06-19] MEDS: heparin, porcine 5000 units/ml vial SQ SCH ×2 (08:37→21:02)
[2023-06-20 02:16] VITALS: BP 128/51; PULSE 58; RESP 14; TEMP 98; O2SAT 99
[2023-06-20] MEDS ORDERED: DEXTROSE 15 GM of carb/4 tabs (each vial/BOTTLE has 4 tablets) PO PRN ×2 (02:30)
[2023-06-20] MEDS ORDERED: glucagon, human recombinant 1mg kit SUBCUT PRN (02:30)
[2023-06-20] MEDS: insulin regular, human U-100 3ml vial - multi-dose SQ SCH ×2 (04:34→11:28)
[2023-06-20 07:00] VITALS: RESP 17; O2SAT 98
[2023-06-20] MEDS: docusate sodium 100mg/10ml UD cup PEG SCH (08:00)
[2023-06-20] MEDS: K and/or MAG REPLACEMENT MC SCH (08:00)
[2023-06-20 08:09] LABS: BASOPHILS % (AUTO) 0 % (0-1); EOSINOPHILS % (AUTO) 0 % (0-6); HEMATOCRIT 30.7 % (35.0-45.0); HEMOGLOBIN 10.1 g/dl (12.0-16.0); LYMPHOCYTES # (AUTO) 0.3 X10'3 (1.1-4.8); LYMPHOCYTES % (AUTO) 2.9 % (21-51); MEAN CORPUSCULAR HEMOGLOBIN 30.1 PG (27.0-31.0); MEAN CORPUSCULAR HGB CONC 32.8 g/dL (33.0-36.5); MEAN CORPUSCULAR VOLUME 91.7 FL (78-98); MEAN PLATELET VOLUME 7.5 FL (7.4-10.4); MONOCYTES # (AUTO) 0.9 X10'3 (0-0.9); MONOCYTES % (AUTO) 7.7 % (2-12); NEUTROPHILS # (AUTO) 10.2 X10'3 (1.8-7.7); NEUTROPHILS % (AUTO) 89.4 % (42-75); PLATELET COUNT 222 X10'3 (140-440); RED BLOOD COUNT 3.34 X10'6 (4.20-5.60); RED CELL DISTRIBUTION WIDTH 14.5 % (11.5-14.5); WHITE BLOOD COUNT 11.4 X10'3 (4.5-11.0)
[2023-06-20] MEDS: lansoprazole 15mg solutab PEG SCH (08:09)
[2023-06-20] MEDS: methylPREDNISolone sod succ/PF 40mg inj. IV SCH (08:09)
[2023-06-20] MEDS: piperacillin/tazo 3.375gm/50ml 50 ML IV SCH ×2 (08:09)
[2023-06-20] MEDS: heparin, porcine 5000 units/ml vial SQ SCH (08:09)
[2023-06-20] MEDS: fluconazole-Diflucan 200mg/NS 100 ML IV SCH (08:09)
[2023-06-20 08:28] LABS: ALANINE AMINOTRANSFERASE 43 U/L (12-78); ALBUMIN 2.6 G/DL (3.4-5.0); ALBUMIN/GLOBULIN RATIO 0.7 (1.1-1.5); ALKALINE PHOSPHATASE 70 IU/L (46-116); ANION GAP 6 (8-16); ASPARTATE AMINO TRANSFERASE 22 U/L (10-37); BILIRUBIN,TOTAL 0.4 MG/DL (0.1-1.0); BLOOD UREA NITROGEN 19 MG/DL (7-18); CALCIUM 8.9 MG/DL (8.5-10.1); CHLORIDE 103 MMOL/L (99-107); CREATININE 0.38 MG/DL (0.40-0.90); GLUCOSE 276 MG/DL (70-104); POTASSIUM 3.6 MMOL/L (3.5-5.1); SODIUM 139 MMOL/L (135-145); TOTAL CARBON DIOXIDE 30.5 MMOL/L (24-32); TOTAL PROTEIN 6.1 G/DL (6.4-8.2); eCRCL 111 ML/MIN; eGFR > 90 ML/MIN
[2023-06-20 10:41] VITALS: PULSE 74; RESP 20; O2SAT 95
== END 2023-06-20 16:57 | DRG 137 ==
LOC: ER 08:12 → ED HOLD 06-10 00:59 → PCU 3S 06-10 15:21
PROVIDERS: ADMIT Family Medicine; ATTEND Internal Medicine
PROC: 5A09357 Assistance with Respiratory Ventilation, Less than 24 Consecutive Hours, Continuous Positive Airway Pressure (ICD-10-PCS; 2023-06-09)
PROC: 0DH64UZ Insertion of Feeding Device into Stomach, Percutaneous Endoscopic Approach (ICD-10-PCS; principal; 2023-06-10)
PROC: 0B9L8ZX Drainage of Left Lung, Via Natural or Artificial Opening Endoscopic, Diagnostic (ICD-10-PCS; 2023-06-10)
PROC: 5A09357 Assistance with Respiratory Ventilation, Less than 24 Consecutive Hours, Continuous Positive Airway Pressure (ICD-10-PCS; 2023-06-10)
PROC: 5A09357 Assistance with Respiratory Ventilation, Less than 24 Consecutive Hours, Continuous Positive Airway Pressure (ICD-10-PCS; 2023-06-11)
PROC: 5A09357 Assistance with Respiratory Ventilation, Less than 24 Consecutive Hours, Continuous Positive Airway Pressure (ICD-10-PCS; 2023-06-12)
DX: J69.0 Pneumonitis due to inhalation of food and vomit (principal); J96.01 Acute respiratory failure with hypoxia; I31.39 Other pericardial effusion (noninflammatory); E43 Unspecified severe protein-calorie malnutrition; J96.02 Acute respiratory failure with hypercapnia; I50.9 Heart failure, unspecified; J90 Pleural effusion, not elsewhere classified; E88.09 Other disorders of plasma-protein metabolism, not elsewhere classified; R13.12 Dysphagia, oropharyngeal phase; N13.6 Pyonephrosis; E86.1 Hypovolemia; I11.0 Hypertensive heart disease with heart failure; E78.5 Hyperlipidemia, unspecified; K76.0 Fatty (change of) liver, not elsewhere classified; J44.1 Chronic obstructive pulmonary disease with (acute) exacerbation; D64.9 Anemia, unspecified; E03.9 Hypothyroidism, unspecified; F10.21 Alcohol dependence, in remission; N21.0 Calculus in bladder; Z20.822 Contact with and (suspected) exposure to COVID-19; E87.6 Hypokalemia; N26.1 Atrophy of kidney (terminal); Z98.1 Arthrodesis status; Z91.018 Allergy to other foods; Z91.010 Allergy to peanuts; Z86.711 Personal history of pulmonary embolism; Z79.899 Other long term (current) drug therapy; Z68.23 Body mass index [BMI] 23.0-23.9, adult
CPT/HCPCS: 31645; 36415; 36600; 43246; 71045; 71250; 71260; 71275; 74177; 76604; 80053; 80061; 81001; 81003; 82607; 82728; 82803; 82948; 83036; 83540; 83550; 83605; 83735; 83880; 83935; 84134; 84145; 84439; 84443; 84480; 84484; 85007; 85018; 85025; 85379; 85610; 85730; 87040; 87077; 87088; 87811; 92508; 92616; 93306; 94640; 94660; 94668; 94760; 97162; 97530; 99152; 99285; A4314; A4615; A4620; A4624; A6212; A6213; A6222; A6223; A6250; A6402; A6449; B4087; G0378; J0456; J0696; J1265; J1450; J1644; J1815; J2250; J2270; J2405; J2543; J2920; J2930; J3010; J3480; J3490; J7030; J7040; J7042; J7070; J7120; P9045; Q9967